=== PATIENT | male | born 1975 | race Caucasian/White ===

== ENCOUNTER → 2016-10-27 | Outpatient (CLI) | payer BC ==
--- NOTE | 2016-10-27 13:44 | KCIC ---
Exam: Abdomen ultrasound Indication: Abdominal pain. Hernia evaluation Technique: Multiple realtime grayscale sonographic images were obtained over the abdomen. Static images were submitted for interpretation. Findings: Visualized portions of the pancreas are unremarkable. The IVC is patent. The abdominal aorta is normal in caliber. The liver is normal in size measuring 14.7cm. There is a normal hepatic echotexture. No focal lesions are identified. The gallbladder is nondistended. There is no evidence for cholelithiasis. There is no wall thickening, or pericholecystic fluid. The common bile duct is within normal limits measuring 3 mm in diameter. The Right kidney is normal in size measuring 10.8 x 4.1 x 5.2cm. There is no evidence for mass, nephrolithiasis, or hydronephrosis Evaluation over the midline periumbilical region demonstrates no evidence for periumbilical hernia. Impression: Normal abdominal ultrasound. No evidence for hernia. Electronically signed by: Bar Olivia MD (10/27/2016 1:40 PM)
== END | disposition home or self-care (01) ==
LOC: KCIC US 09:48
PROVIDERS: ATTEND Family Medicine
DX: R10.33 Periumbilical pain (principal)
CPT/HCPCS: 76705